=== PATIENT | male | born 1985 | race Caucasian/White ===

== ENCOUNTER → 2017-02-26 | Outpatient (CLI) | payer OTHER | END | disposition home or self-care (01) | LOC: YCFC.O 09:10 | PROVIDERS: ATTEND Nurse Practitioner Family | DX: Z00.00 Encounter for general adult medical examination without abnormal findings (principal); Z13.220 Encounter for screening for lipoid disorders; R73.09 Other abnormal glucose; Z13.1 Encounter for screening for diabetes mellitus ==

== ENCOUNTER 2017-10-28 07:49 | Emergency (ER) | payer OTHER ==
[2017-10-28 08:02] VITALS: TEMP 100
[2017-10-28] MEDS: AMOXICILLIN & POT CLAVULANATE 875 MG TAB PO ONE (09:10)
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
[2017-10-28] MEDS: HEPATITIS B VACCINE 20 MCG/ML IM ONE (09:44)
[2017-10-28] MEDS: HEPATITIS A IM ONE (09:46)
[2017-10-28] MEDS: [UNRECOGNIZED DRUG - OTHER] IM ONE (09:46)
[2017-10-28 10:09] VITALS: BP 173/64; O2SAT 97
== END 2017-10-28 10:08 | disposition home or self-care (01) ==
LOC: ER 07:49
DX: S51.852A Open bite of left forearm, initial encounter (principal); Y04.1XXA Assault by human bite, initial encounter; Y99.0 Civilian activity done for income or pay
CPT/HCPCS: 36415; 80074; 86703; J3490